=== PATIENT | male | born 1990 | race African-American/Black ===

== ENCOUNTER 2017-01-30 10:19 | Emergency (ER) | payer OTHER ==
[~2017-01-30 10:19] MED LIST: ATARAX PO; CIPRO PO; FLEXERIL10 MG PO; KEFLEX500 M1 PO; LORTAB 10-5001 EACH PO; MOTRIN600 MG PO; NAPROSYN500 MG PO; NO MEDICATIONS; NORVASC PO; PERMETHRIN60 GM TP; TRIAMCINOLONE AC1 GM EXT
[2017-01-30 10:28] LABS: INFLUENZA A NEG (NEG); INFLUENZA B POS (NEG)
== END 2017-01-30 11:42 | disposition home or self-care (01) ==
LOC: SED 10:19
PROVIDERS: Emergency Medicine
DX: J10.1 Influenza due to other identified influenza virus with other respiratory manifestations (principal); J01.00 Acute maxillary sinusitis, unspecified; J01.10 Acute frontal sinusitis, unspecified; I10 Essential (primary) hypertension
CPT/HCPCS: 82947; 87651; 87804; 96372; 99283; J1885